=== PATIENT | female | born 1960 | race Two or more races ===

== ENCOUNTER → 2024-11-06 | Outpatient (CLI) | payer MEDICAID, SELFPAY ==
--- NOTE | 2024-11-06 10:02 | XR_ITS ---
EXAMINATION: Ankle, left 3 views . Technique: Ankle AP, oblique, lateral 3 views Date and time of exam: November 06, 2024 1016 hours INDICATIONS: Ankle pain 2 years FINDINGS: Prominent osteopenia Moderate osteoarthritis tibiotalar joint 12 mm plantar bony calcaneal spur Soft tissue vascular calcification Moderate osteoarthritis subtalar joint IMPRESSION: No fracture Moderate osteoarthritis tibiotalar subtalar joint
--- NOTE | 2024-11-06 10:02 | XR_ITS ---
Examination: Lumbar spine 3 views Technique one AP lateral coned lateral lower lumbar spine 3 views Date and time: November 06, 2024 1035 hours INDICATIONS: Back pain radiating down the left leg 2 years. FINDINGS: Moderate osteopenia Lumbar dextroscoliosis 22 degrees Grade 2 anterolisthesis L4 on L5 Moderate to advanced diffuse lumbar degenerative disc disease, most severe L2-L3, L3-L4, L5-S1 No lumbar fracture IMPRESSION: Moderate to advanced diffuse lumbar degenerative disc disease with significant spinal stenosis
--- NOTE | 2024-11-06 10:02 | XR_ITS ---
Examination: Thoracic spine 3 views TECHNIQUE: AP lateral coned lateral upper dorsal spine 3 views Date and time: November 06, 2024 1037 hours INDICATIONS: Back pain 2 years. FINDINGS: Thoracolumbar levoscoliosis 13 degrees Significant osteopenia Mild to moderate diffuse thoracic disc narrowing No thoracic fracture Moderate thoracic spondylosis IMPRESSION: Thoracolumbar levoscoliosis 13 degrees Mild to moderate diffuse thoracic degenerative disc disease
== END | disposition home or self-care (01) ==
PROVIDERS: PCP Nurse Practitioner Family; Referring Provider Nurse Practitioner Family; Visit Provider Nurse Practitioner Family
DX: M51.360 Other intervertebral disc degeneration, lumbar region with discogenic back pain only (principal); M48.061 Spinal stenosis, lumbar region without neurogenic claudication; M41.85 Other forms of scoliosis, thoracolumbar region; M51.34 Other intervertebral disc degeneration, thoracic region; M19.072 Primary osteoarthritis, left ankle and foot
CPT/HCPCS: 72070; 72100; 73610